=== PATIENT | male | born 1995 | race Caucasian/White ===

== ENCOUNTER 2017-04-05 15:10 | Emergency (ER) | payer MEDICAID ==
[~2017-04-05] VITALS: Ht 175.3 cm; Wt 108.9 kg
--- NOTE | 2017-04-05 15:17 | NUR ---
PT AMBULATORY TO ER BED 09. C/O SEVERE HEADACHE X 5 DAYS. DENIES TRAUMA. GOWNED AND PLACED ON MONITOR. STABLE VITALS. AWAITING MD GARCIA.
--- NOTE | 2017-04-05 15:20 | NUR ---
DR CARLISLE AT BEDSIDE FOR EVAL.
--- NOTE | 2017-04-05 16:20 | NUR ---
PT TO RADIOLOGY FOR HEAD CT SCAN VIA WHEELCHAIR
--- NOTE | 2017-04-05 16:32 | NUR ---
IV LINE STARTED. BLOOD DRAWN AND SENT TO LAB.
[2017-04-05 16:42] LABS: BASOPHILS # (AUTO) 0.1 /CMM (0.0-0.2); BASOPHILS % (AUTO) 0.6 % (0.0-2.0); EOSINOPHILS # (AUTO) 0.2 /CMM (0.0-0.7); EOSINOPHILS % (AUTO) 1.6 % (0.0-6.0); HEMATOCRIT 52 % (39-51); HEMOGLOBIN 17.5 g/dL (13.5-17.5); LYMPHOCYTES # (AUTO) 3.6 /CMM (0.8-4.8); LYMPHOCYTES % (AUTO) 29.7 % (20.0-44.0); MEAN CORPUSCULAR HEMOGLOBIN 31 PG (26.0-33.0); MEAN CORPUSCULAR HGB CONC 34 g/dl (31.0-36.0); MEAN CORPUSCULAR VOLUME 91 fL (80-96); MONOCYTES # (AUTO) 0.5 /CMM (0.1-1.30); MONOCYTES % (AUTO) 4.2 % (2.0-12.0); NEUTROPHILS # (AUTO) 7.7 /CMM (1.8-8.9); NEUTROPHILS % (AUTO) 63.9 % (43.0-81.0); PLATELET COUNT (AUTO) 209 /CMM (150-450); RDW COEFFICIENT OF VARIATION 12.7 (11.5-15.0); RED BLOOD CELL COUNT(AUTO) 5.71 MIL/uL (4.5-6.0); WHITE BLOOD COUNT (AUTO) 12.1 K/uL (4.3-11.0)
--- NOTE | 2017-04-05 16:46 | NUR ---
CALLED DR MARTINEZ OFFICE, DR CARLISLE ON THE PHONE WITH HIM.
[2017-04-05 16:50] LABS: CALCIUM, SERUM 9.4 mg/dL (8.5-10.1); CREATININE 1.1 mg/dL (0.6-1.3)
[2017-04-05 16:53] LABS: INR 0.97 (0.87-1.13); PROTHROMBIN TIME 10.1 SECS (9.5-12.7)
[2017-04-05 17:01] LABS: ALBUMIN 4.6 g/dL (3.4-5.0); BILIRUBIN,TOTAL 1.4 mg/dL (0.2-1.0); TOTAL PROTEIN, SERUM 7.9 g/dL (6.4-8.2)
--- NOTE | 2017-04-05 17:45 | NUR ---
Patient does not wish to proceed with medical care recommended by Dr. Albert. Patient given information related to possible complications, up to and including , which could occur as a result of leaving the hospital at this time. Patient verbalizes understanding of risks involved due to leaving against medical advice. Patient has signed AMA form.
[2017-04-05 17:48] VITALS: BP 135/80
== END 2017-04-05 17:49 | disposition left against medical advice (07) ==
LOC: ER 15:16
DX: R51 Headache (principal); F17.200 Nicotine dependence, unspecified, uncomplicated; R79.1 Abnormal coagulation profile
CPT/HCPCS: 36415; 70450; 80053; 85025; 85610; 85730; 96374; 96375; 99285; A4606; J2270; J2405 ×2; J7030; Z7610